=== PATIENT | male | born 1955 | race Caucasian/White ===

== ENCOUNTER 2017-11-12 03:42 | Outpatient (CLI) | payer BC | END 2017-11-12 23:59 | disposition home or self-care (01) | LOC: DIABETIC 03:42 | PROVIDERS: ATTEND Internal Medicine | DX: E11.9 Type 2 diabetes mellitus without complications (principal) | CPT/HCPCS: G0108 ==

== ENCOUNTER 2018-05-26 02:25 | Outpatient (CLI) | payer BC | END 2018-05-26 23:59 | disposition home or self-care (01) | LOC: DIABETIC 02:25 | PROVIDERS: ATTEND Internal Medicine | DX: E11.9 Type 2 diabetes mellitus without complications (principal); Z79.899 Other long term (current) drug therapy; Z88.0 Allergy status to penicillin | CPT/HCPCS: G0108 ==

== ENCOUNTER 2018-12-02 00:25 | Outpatient (CLI) | payer BC | END 2018-12-02 23:59 | disposition home or self-care (01) | LOC: DIABETIC 00:25 | PROVIDERS: ATTEND Internal Medicine | DX: E11.9 Type 2 diabetes mellitus without complications (principal); Z79.84 Long term (current) use of oral hypoglycemic drugs; Z88.0 Allergy status to penicillin; Z88.8 Allergy status to other drugs, medicaments and biological substances | CPT/HCPCS: G0108 ==

== ENCOUNTER 2019-05-18 02:35 | Outpatient (CLI) | payer BC | END 2019-05-18 23:59 | disposition home or self-care (01) | LOC: DIABETIC 02:35 | PROVIDERS: ATTEND Internal Medicine | DX: E11.9 Type 2 diabetes mellitus without complications (principal); Z79.84 Long term (current) use of oral hypoglycemic drugs; Z79.899 Other long term (current) drug therapy; Z88.0 Allergy status to penicillin | CPT/HCPCS: G0108 ==